=== PATIENT | female | born 1995 | race Caucasian/White ===

== ENCOUNTER 2019-03-01 12:26 | Outpatient (REF) | payer BC, SELFPAY | END 2019-03-01 12:46 | LOC: NCHCN 12:26 | PROVIDERS: PCP Physician Assistant; Visit Provider Nurse Practitioner Family | DX: N89.8 Other specified noninflammatory disorders of vagina (principal) | CPT/HCPCS: 87480; 87510; 87660 ==

== ENCOUNTER 2019-03-08 09:15 | Outpatient (REF) | payer BC, SELFPAY ==
[2019-03-08 19:43] LABS: Cholesterol 159 mg/dL (50-200); Glucose 92 mg/dL (70-100); HDL Cholesterol 50 mg/dL (40-60); LDL CHOLESTEROL 89 mg/dL (<100); Triglyceride 106 mg/dL (30-150)
== END 2019-03-08 09:35 ==
LOC: NCHCN 09:15
PROVIDERS: PCP Physician Assistant; Visit Provider Nurse Practitioner Family
DX: Z00.00 Encounter for general adult medical examination without abnormal findings (principal); Z13.1 Encounter for screening for diabetes mellitus; Z13.220 Encounter for screening for lipoid disorders
CPT/HCPCS: 80061; 82947; 83721

== ENCOUNTER 2021-05-28 20:04 | Outpatient (REF) | payer BC, SELFPAY ==
--- NOTE | 2021-05-28 14:45 | PAPFT_PTH ---
PATIENT: Yanna Comer LOC: [facility]#:[id number] AGE/SX: 25/F ROOM: RE05/28/[address]: Judy Boateng : 1995 BED: DIS: 05/28/2021 SPEC #: [id number] RECD: 05/29/21 12:53 STATUS: JUANITA RESammy #: [id number] TOAN: 05/28/21 14:[address]: Judy Boateng DEPT: [facility] Cytology RECD BY: Tess Vivar ENTERED: 05/29/21 12:53 SP TYPE: PAPFT OTHR DR: Ayad Alexandra Tissues: 1 - CX/ENDOCX FOR PAP SMEARS Procedures: PAP THIN PREP/[facility] Screening Comments: [id number]
== END 2021-05-28 20:05 | disposition home or self-care (01) ==
LOC: NCHCN 20:04
PROVIDERS: PCP Physician Assistant; Visit Provider Nurse Practitioner Family
DX: Z01.419 Encounter for gynecological examination (general) (routine) without abnormal findings (principal); Z12.4 Encounter for screening for malignant neoplasm of cervix
CPT/HCPCS: 88142

== ENCOUNTER 2021-08-20 19:04 | Outpatient (REF) | payer BC, SELFPAY | END 2021-08-20 19:05 | disposition home or self-care (01) | LOC: NCHCN 19:04 | PROVIDERS: PCP Physician Assistant; Visit Provider Nurse Practitioner Family | DX: R30.0 Dysuria (principal) | CPT/HCPCS: 87077; 87086; 87186 ==

== ENCOUNTER 2021-10-01 21:42 | Outpatient (REF) | payer BC, SELFPAY ==
[2021-10-03 12:50] LABS: COVID-19 RT-PCR UVMMC Result Negative (Negative)
== END 2021-10-01 21:43 | disposition home or self-care (01) ==
LOC: NCHCN 21:42
PROVIDERS: PCP Physician Assistant; Visit Provider Nurse Practitioner Family
DX: Z20.822 Contact with and (suspected) exposure to COVID-19 (principal); J31.0 Chronic rhinitis
CPT/HCPCS: U0003; 87086